=== PATIENT | female | born 1965 | race Two or more races ===

== ENCOUNTER 2024-04-25 08:47 | Outpatient (CLI) | payer OTHER | END 2024-04-25 09:14 | disposition home or self-care (01) | LOC: RAD 08:47 | PROVIDERS: ATTEND General Practice | DX: M25.552 Pain in left hip (principal); M25.551 Pain in right hip; M81.0 Age-related osteoporosis without current pathological fracture; N64.2 Atrophy of breast; M25.512 Pain in left shoulder; M25.511 Pain in right shoulder; M25.561 Pain in right knee; M25.562 Pain in left knee; M79.642 Pain in left hand; M79.641 Pain in right hand; M54.59 Other low back pain; M54.2 Cervicalgia; F17.200 Nicotine dependence, unspecified, uncomplicated | CPT/HCPCS: 72141 ==

== ENCOUNTER 2024-04-26 08:36 | Outpatient (CLI) | payer OTHER | END 2024-04-26 08:44 | disposition home or self-care (01) | LOC: RAD 08:36 | PROVIDERS: ATTEND General Practice | DX: M54.6 Pain in thoracic spine (principal) ==

== ENCOUNTER → 2024-05-08 10:47 | Outpatient (CLI) | payer OTHER | END | disposition home or self-care (01) | LOC: NUCLEAR 10:15 | PROVIDERS: ATTEND General Practice | DX: M85.89 Other specified disorders of bone density and structure, multiple sites (principal); M81.0 Age-related osteoporosis without current pathological fracture ==

== ENCOUNTER 2024-09-24 09:10 | Outpatient (CLI) | payer OTHER | END 2024-09-24 09:18 | disposition home or self-care (01) | LOC: MRI 09:10 | PROVIDERS: ATTEND Anesthesiology | DX: M54.50 Low back pain, unspecified (principal) | CPT/HCPCS: 72148 ==

== ENCOUNTER 2024-11-02 09:11 | Outpatient (CLI) | payer OTHER | END 2024-11-02 09:14 | disposition home or self-care (01) | LOC: TOM 09:11 | PROVIDERS: ATTEND General Practice | DX: R91.8 Other nonspecific abnormal finding of lung field (principal) ==